=== PATIENT | female | born 1955 | race Caucasian/White ===

== ENCOUNTER 2019-08-09 08:11 | Emergency (ER) | payer MEDICARE, OTHER ==
[~2019-08-09] VITALS: Ht 152.4 cm; Wt 65.4 kg
[~2019-08-09 08:11] MED LIST: HYDROCHLOROTH12.5 MG
--- NOTE | 2019-08-09 08:13 | NUR ---
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
[2019-08-09] MEDS ORDERED: SERT25TA3 PO (08:32)
[2019-08-09] MEDS ORDERED: HYDR25TA6 PO (08:32)
--- NOTE | 2019-08-09 08:32 | NUR ---
PT TO ED FROM HOME W/ . C/O HTN. SEE CHARTED VS. STS THIS AM WAS 202/90 AND FELT "SHAKY". STARTED ON HCTZ 25 MG QD ON . HX HTN WAS TAKEN OFF MEDS 2 YEARS AGO. DENIES: CP/SOB/ANDERS/DIZZY/WEAK/BLURRY VISION/NAUSEA. NO COMPLAINTS AT THIS TIME. WAS STARTED ON SERTRALINE FOR ANXIETY ON MONDAY. TOOK IT THIS AM. LUNGS CTAB, SR ON MONITOR 80S. CALL BLANKENSHIP IN REACH. MED STUDENT IN FOR ASSESS. CTM.
--- NOTE | 2019-08-09 09:03 | NUR ---
AWAITING LABS/ECG. PT STS SHE WANTS TO GO HOME BC BP IMPROVED BUT EXPLAINED THAT MD ORDERED LABS AND PT IS WILLING TO STAY. CALL BLANKENSHIP IN REACH.
[2019-08-09 09:22] LABS: BASOPHILS # (AUTO) 0.02 x10^3/uL (0-0.1); BASOPHILS % (AUTO) 0 % (0-1); EOSINOPHILS % (AUTO) 0 % (1-7); LYMPHOCYTES # (AUTO) 0.62 x10^3/uL (1-3.4); LYMPHOCYTES % (AUTO) 7 % (22-44); MD NO; MEAN CORPUSCULAR HEMOGLOBIN 23.3 pg (27.0-34.8); MEAN CORPUSCULAR HGB CONC 31.7 g/dL (32.4-35.8); MEAN CORPUSCULAR VOLUME 73.6 fL (80-100); MEAN PLATELET VOLUME 7.1 fL (7.4-10.4); MONOCYTES % (AUTO) 5 % (2-9); NEUTROPHILS # (AUTO) 7.55 x10^3/uL (1.8-6.8); NEUTROPHILS % (AUTO) 88 % (42-75); PLATELET COUNT 507 x10^3/uL (130-400); RED BLOOD COUNT 4.89 x10^6/uL (3.82-5.3)
[2019-08-09 10:00] VITALS: BP 135/78
[2019-08-09 10:13] LABS: ALBUMIN 4.3 g/dL (3.4-5.0); ANION GAP 9 mmol/L (5-15); CALCIUM 9.1 mg/dL (8.5-10.1); CHLORIDE 89 mmol/L (98-107)
[2019-08-09 10:18] LABS: ALANINE AMINOTRANSFERASE 18 U/L (12-78); ALKALINE PHOSPHATASE 57 U/L (45-117); CREATININE 0.71 mg/dL (0.55-1.02); TOTAL PROTEIN 7.5 g/dL (6.4-8.2); TROPONIN I < 0.015 ng/mL (0.000-0.045)
[2019-08-09 10:32] LABS: BILIRUBIN,TOTAL 0.5 mg/dL (0.2-1.0)
== END 2019-08-09 10:46 | disposition home or self-care (01) ==
LOC: ED 08:45
DX: I10 Essential (primary) hypertension (principal); E87.1 Hypo-osmolality and hyponatremia; Z90.710 Acquired absence of both cervix and uterus; Z88.5 Allergy status to narcotic agent
CPT/HCPCS: 36415; 80053; 83880; 84484; 85025; 93005; 99284

== ENCOUNTER 2019-08-11 19:29 | Inpatient (IN) | payer MEDICARE, OTHER ==
[~2019-08-11] VITALS: Ht 152.4 cm; Wt 67.9 kg
[~2019-08-11 19:29] MED LIST changes: +HYDR25TA6 PO; +SERT25TA3 PO
--- NOTE | 2019-08-11 20:01 | NUR ---
PT C/O LEFT ARM PAIN AND SOB, REPORTS STARTING NEW PRESCRIPTION OF HYDROCHLORATHIAZIDE 25MG DAILY STARTING MONDAY. REPORTS HIGH BLOOD PRESSURE WHEN SHE TOOK IT AT HOME TONIGHT AND CHOSE TO COME TO ED TO BE EVALUATED. PT DENIES CP, EKG DONE IN TRIAGE, ERP REPORTS NSR. PT REPORTS MILD HEADACHE STARTING TODAY. DENIES OTHER C/O AT THIS TIME. PT CONNECTED TO ALL MONITORING, CALL LIGHT WITHIN REACH, ALL SAFETY MEASURES IN PLACE. FAMILY AT FOR SUPPORT. ERP DISCUSSED POC WITH PT.
[2019-08-11 20:44] LABS: ANION GAP 14 mmol/L (5-15); CALCIUM 8.7 mg/dL (8.5-10.1); CHLORIDE 85 mmol/L (98-107); CREATININE 0.76 mg/dL (0.55-1.02)
[2019-08-11] MEDS ORDERED: SODIUM CHLORIDE 0.9% 1,000 ML IV SCH ×2 (21:00→21:53)
[2019-08-11] MEDS ORDERED: POTASSIUM CHLORIDE 20 MEQ TAB.ER.PRT PO ONE (21:30)
[2019-08-11] MEDS ORDERED: POTASSIUM CHLORIDE 20 MEQ TAB.ER.PRT ONE (21:36)
--- NOTE | 2019-08-11 21:58 | NUR ---
REPORT GIVEN TO PAOLA BOURNE.
[2019-08-11] MEDS ORDERED: ACETAMINOPHEN 325 MG TABLET PO PRN (22:00)
[2019-08-11] MEDS ORDERED: LABETALOL 5MG/ML, 20ML IVPush PRN (22:00)
[2019-08-11] MEDS ORDERED: ENALAPRILAT 1.25 MG/ML, 2ML IVPush PRN (22:00)
--- NOTE | 2019-08-11 22:01 | NUR ---
PT UP TO BATHROOM WITH STEADY GAIT.
--- NOTE | 2019-08-11 22:12 | NUR ---
PT TO IMAGING AT THIS TIME
[2019-08-11 22:34] VITALS: BP 156/88
[2019-08-12] MEDS: HEPARIN 5,000 UNITS/ML, 1ML SQ SCH ×3 (00:05→15:33)
[2019-08-12 00:45] VITALS: BP 151/88
[2019-08-12 01:43] LABS: ANION GAP 9 mmol/L (5-15); CALCIUM 9.1 mg/dL (8.5-10.1); CHLORIDE 91 mmol/L (98-107); CREATININE 0.77 mg/dL (0.55-1.02)
[2019-08-12 05:05] LABS: BASOPHILS # (AUTO) 0.04 x10^3/uL (0-0.1); BASOPHILS % (AUTO) 1 % (0-1); EOSINOPHILS # (AUTO) 0.01 x10^3/uL (0-0.4); EOSINOPHILS % (AUTO) 0 % (1-7); LYMPHOCYTES # (AUTO) 1.28 x10^3/uL (1-3.4); LYMPHOCYTES % (AUTO) 23 % (22-44); MD NO; MEAN CORPUSCULAR HEMOGLOBIN 23.3 pg (27.0-34.8); MEAN CORPUSCULAR VOLUME 72.9 fL (80-100); MEAN PLATELET VOLUME 7.6 fL (7.4-10.4); MONOCYTES % (AUTO) 11 % (2-9); NEUTROPHILS # (AUTO) 3.72 x10^3/uL (1.8-6.8); NEUTROPHILS % (AUTO) 66 % (42-75); PLATELET COUNT 420 x10^3/uL (130-400); RED CELL DISTRIBUTION WIDTH 18.4 % (9.6-15.2)
[2019-08-12 05:08] LABS: ANION GAP 9 mmol/L (5-15); CALCIUM 8.7 mg/dL (8.5-10.1); CHLORIDE 93 mmol/L (98-107)
[2019-08-12 05:09] LABS: CREATININE 0.81 mg/dL (0.55-1.02)
[2019-08-12 06:40] VITALS: BP 153/86
[2019-08-12] MEDS: LISINOPRIL 10 MG TABLET PO SCH (11:39)
[2019-08-12] MEDS: FAMOTIDINE 10 MG TAB PO SCH ×2 (11:39→19:56)
[2019-08-12] MEDS: IBUPROFEN 600 MG TABLET PO PRN ×2 (11:43→18:36)
[2019-08-12 12:09] LABS: ANION GAP 11 mmol/L (5-15); CALCIUM 8.9 mg/dL (8.5-10.1); CHLORIDE 91 mmol/L (98-107)
[2019-08-12 12:17] LABS: CREATININE 0.74 mg/dL (0.55-1.02)
[2019-08-12 12:47] VITALS: BP 133/77
[2019-08-12 16:12] LABS: ANION GAP 8 mmol/L (5-15); CALCIUM 8.9 mg/dL (8.5-10.1); CHLORIDE 95 mmol/L (98-107)
[2019-08-12 16:13] LABS: CREATININE 0.73 mg/dL (0.55-1.02)
[2019-08-12 18:40] LABS: CHLORIDE,URINE RANDOM 11 mmol/L; POTASSIUM,URINE RANDOM 7 mmol/L; SODIUM,URINE RANDOM 21 mmol/L
[2019-08-12 19:52] VITALS: BP 128/75
[2019-08-12] MEDS ORDERED: DIPHENHYDRAMINE 25 MG CAPSULE PO PRN (20:30)
[2019-08-12 21:25] LABS: ANION GAP 9 mmol/L (5-15); CALCIUM 8.5 mg/dL (8.5-10.1); CHLORIDE 96 mmol/L (98-107); CREATININE 0.64 mg/dL (0.55-1.02)
[2019-08-12] MEDS ORDERED: SODIUM CHLORIDE 0.9% 1,000 ML IV SCH (21:53)
[2019-08-13 02:41] VITALS: BP 132/76
[2019-08-13 07:12] LABS: ANION GAP 8 mmol/L (5-15); CALCIUM 8.5 mg/dL (8.5-10.1); CHLORIDE 97 mmol/L (98-107)
[2019-08-13 07:13] LABS: CREATININE 0.77 mg/dL (0.55-1.02)
[2019-08-13 07:25] VITALS: BP 129/75
[2019-08-13] MEDS: HEPARIN 5,000 UNITS/ML, 1ML SQ SCH ×3 (08:45→15:52)
[2019-08-13] MEDS: FAMOTIDINE 10 MG TAB PO SCH (08:45)
[2019-08-13] MEDS: LISINOPRIL 10 MG TABLET PO SCH (08:45)
[2019-08-13 09:19] LABS: OSMOLALITY,URINE 123 mOsm/kg (500-850)
[2019-08-13] MEDS ORDERED: SODIUM CHLORIDE 0.9% 1,000 ML IV SCH (09:30)
[2019-08-13 11:23] LABS: ANION GAP 10 mmol/L (5-15); CALCIUM 8.3 mg/dL (8.5-10.1); CHLORIDE 97 mmol/L (98-107); CREATININE 0.71 mg/dL (0.55-1.02)
[2019-08-13 15:01] VITALS: BP 147/79
[2019-08-13 16:15] LABS: ANION GAP 10 mmol/L (5-15); CALCIUM 8.5 mg/dL (8.5-10.1); CHLORIDE 101 mmol/L (98-107); CREATININE 0.73 mg/dL (0.55-1.02)
[2019-08-13] MEDS ORDERED: LISI-167 PO (16:26)
== END 2019-08-13 17:36 | disposition home or self-care (01) | DRG 641 ==
LOC: ED 19:44 → EDIP 21:19 → 4WST 22:31
PROVIDERS: ADMIT Family Medicine; ATTEND Family Medicine
DX: E87.1 Hypo-osmolality and hyponatremia (principal); E87.6 Hypokalemia; F41.1 Generalized anxiety disorder; I10 Essential (primary) hypertension; Z88.6 Allergy status to analgesic agent; D50.9 Iron deficiency anemia, unspecified; E66.3 Overweight; Z68.29 Body mass index [BMI] 29.0-29.9, adult; F12.10 Cannabis abuse, uncomplicated; T50.2X5A Adverse effect of carbonic-anhydrase inhibitors, benzothiadiazides and other diuretics, initial encounter; Y92.89 Other specified places as the place of occurrence of the external cause; Z90.710 Acquired absence of both cervix and uterus; Z79.899 Other long term (current) drug therapy
CPT/HCPCS: 36415; 70450; 71045; 80048; 80053; 82436; 83735; 83880; 83930; 83935; 84133; 84300; 84443; 84484; 85025; 93005; 96360; 99284; G0378; J1644; J7030; Q0163

== ENCOUNTER 2019-08-22 16:48 | Emergency (ER) | payer MEDICARE, OTHER ==
[~2019-08-22] VITALS: Ht 152.4 cm; Wt 63.2 kg
[~2019-08-22 16:48] MED LIST changes: +LISI-167 PO
--- NOTE | 2019-08-22 19:16 | NUR ---
LATE ENTRY: ASSUMED CARE OF PT
--- NOTE | 2019-08-22 19:18 | NUR ---
PT CAME IN CO OF HIGH BP. STATES "MY MEDICATIONS ARENT WORKING". PT BP IS 188/1002. TORRI YIN, IS BEDSIDE. BLANKET PROVIDED.
[2019-08-22] MEDS ORDERED: LISI-167 PO (19:21)
[2019-08-22] MEDS ORDERED: METOPROLOL TARTRATE 25 MG TABLET ONE (19:29)
[2019-08-22] MEDS ORDERED: LORazepam 1MG TABLET PO ONE (19:30)
[2019-08-22] MEDS ORDERED: LORazepam 1MG TABLET ONE (19:30)
[2019-08-22] MEDS ORDERED: METOPROLOL TARTRATE 25 MG TABLET PO ONE (19:30)
[2019-08-22 19:48] LABS: BASOPHILS # (AUTO) 0.02 x10^3/uL (0-0.1); BASOPHILS % (AUTO) 0 % (0-1); EOSINOPHILS # (AUTO) 0.06 x10^3/uL (0-0.4); EOSINOPHILS % (AUTO) 1 % (1-7); LYMPHOCYTES # (AUTO) 1.68 x10^3/uL (1-3.4); LYMPHOCYTES % (AUTO) 29 % (22-44); MD NO; MEAN CORPUSCULAR HGB CONC 31.3 g/dL (32.4-35.8); MEAN CORPUSCULAR VOLUME 73.4 fL (80-100); MEAN PLATELET VOLUME 7.2 fL (7.4-10.4); MONOCYTES # (AUTO) 0.41 x10^3/uL (0.2-0.8); MONOCYTES % (AUTO) 7 % (2-9); NEUTROPHILS # (AUTO) 3.75 x10^3/uL (1.8-6.8); NEUTROPHILS % (AUTO) 63 % (42-75); PLATELET COUNT 449 x10^3/uL (130-400); RED CELL DISTRIBUTION WIDTH 18.9 % (9.6-15.2)
[2019-08-22 19:58] LABS: ANION GAP 9 mmol/L (5-15); CALCIUM 9.1 mg/dL (8.5-10.1); CHLORIDE 100 mmol/L (98-107)
[2019-08-22 20:23] VITALS: BP 154/89
--- NOTE | 2019-08-22 20:24 | NUR ---
PT RESTING IN [facility]. REPORTS SHES FEELING "BETTER"
== END 2019-08-22 21:24 | disposition home or self-care (01) ==
LOC: ED 19:52
DX: I10 Essential (primary) hypertension (principal); F41.1 Generalized anxiety disorder
CPT/HCPCS: 36415; 80048; 85025; 99283